=== PATIENT | male | born 1955 | race Caucasian/White ===

== ENCOUNTER → 2021-05-07 | Outpatient (CLI) | payer MEDICARE, OTHER ==
[~2021-05-07] MED LIST: ANDROGEL75 GM TOP; ATIVAN1 MG PO; CHILDREN'S ASPI81 M1 PO; GINGER250 MG PO; LISINOPRIL-HCT1 EACH PO; METFORMIN HCL500 M3 PO; NORVASC5 MG PO; PERCOCET 10-321 EACH PO; TADALAFIL5 M1 PO; [UNRECOGNIZED DRUG - OTHER] PO; tumeric
== END ==
LOC: M.PC 10:00
PROVIDERS: ATTEND Anesthesiology Pain Medicine
DX: M48.02 Spinal stenosis, cervical region (principal); M54.12 Radiculopathy, cervical region; I10 Essential (primary) hypertension; R20.8 Other disturbances of skin sensation; E11.9 Type 2 diabetes mellitus without complications